=== PATIENT | female | born 1995 | race Caucasian/White ===

== ENCOUNTER 2020-05-29 21:25 | Emergency (ER) | payer BC, OTHER ==
[2020-05-30 00:10] LABS: RED BLOOD COUNT 4.47 M/UL (4.00-5.10)
== END 2020-05-30 02:40 | disposition home or self-care (01) ==
LOC: ER1 21:25
PROVIDERS: Emergency Medicine
DX: O20.0 Threatened abortion (principal); Z88.8 Allergy status to other drugs, medicaments and biological substances; Z3A.01 Less than 8 weeks gestation of pregnancy
CPT/HCPCS: 36415; 76830; 84702; 85025; 86900; 86901; 99284